=== PATIENT | female | born 1955 | race Caucasian/White ===

== ENCOUNTER 2021-07-30 11:21 | Emergency (ER) | payer OTHER, BC ==
[2021-07-30 11:46] VITALS: BP 169/101; PULSE 73; TEMP 97.5; BMI 22.9
== END 2021-07-30 12:27 | disposition home or self-care (01) ==
LOC: FER 11:21
DX: J02.8 Acute pharyngitis due to other specified organisms (principal)
CPT/HCPCS: 99283-25; C9803; U0003; U0005

== ENCOUNTER 2023-03-16 18:04 | Emergency (ER) | payer OTHER, BC ==
[2023-03-16 18:18] VITALS: BP 161/82; PULSE 85; RESP 20; TEMP 98.3; BMI 22.4
== END 2023-03-16 18:49 | disposition home or self-care (01) ==
LOC: FER 18:04
DX: L98.9 Disorder of the skin and subcutaneous tissue, unspecified (principal); S70.321A Blister (nonthermal), right thigh, initial encounter
CPT/HCPCS: 99282-25